=== PATIENT | female | born 1980 | race Caucasian/White ===

== ENCOUNTER → 2020-03-22 | Outpatient (CLI) | payer OTHER ==
[~2020-03-22] MED LIST: FOLIC ACID1 MG PO; KEPPRA 500 MG500 M1 PO
== END ==
LOC: M.RAD 10:08
PROVIDERS: ATTEND Obstetrics & Gynecology
DX: Z12.31 Encounter for screening mammogram for malignant neoplasm of breast (principal)

== ENCOUNTER → 2021-04-06 | Outpatient (CLI) | payer OTHER | LOC: M.RAD 13:00 | DX: N63.32 Unspecified lump in axillary tail of the left breast (principal); N63.31 Unspecified lump in axillary tail of the right breast; M79.629 Pain in unspecified upper arm ==